=== PATIENT | male | born 1970 | race Hispanic/Latino ===

== ENCOUNTER → 2021-06-17 | Day surgery (SDC) | payer OTHER ==
[2021-06-12 12:00] VITALS: BP 127/78
--- NOTE | 2021-06-12 12:11 | PCM.EKG ---
[facility] Test Date: 2021-06-12 Test Time: 12:04:00 Pat Name: LAURA DIEGO Department: Room: Gender: M [employer]: KF [employer] PUSHER : 1970 Requested By: SILVERIO CRESPO Order Number: [id number] Reading MD: Measurements Intervals [place] Rate: 60 P: -7 WA: 158 QRS: 52 QRSD: 100 T: 64 QT: 420 QTc: 420 Interpretive Statements Normal sinus rhythm No previous ECG available for comparison Please click the below link to view image of tracing.
[2021-06-12 12:20] LABS: BASOPHIL % 0.7 % (0.0-0.2); EOSINOPHIL # 0.1 10^3/uL (0.0-0.2); EOSINOPHIL % 1.9 % (0.0-5.0); LYMPHOCYTES # 1.66 10^3/uL1 (1.0-4.8); LYMPHOCYTES % 28.8 % (24.0-44.0); MEAN CORP HGB 29.8 pg (26-34); MONOCYTES # 0.6 10^3/uL (0.3-0.8); MONOCYTES % 10.2 % (5.0-12.0); NEUTROPHIL # 3.3 10^3/uL (1.8-7.7); NEUTROPHILS % 58.1 % (41.0-85.0); PLATELET COUNT 302 10^3/uL (150-400); RED CELL DISTRIBUTION WIDTH 12.9 % (11.5-14.5)
[2021-06-12 12:37] LABS: CARBON DIOXIDE 24.5 mmol/L (20.0-32)
--- NOTE | 2021-06-12 12:50 | DIREP ---
PROCEDURE:CHEST 2 VIEWS COMPARISON:CR, CHEST 2 VIEW, 05/08/2014, 10:15 AM. INDICATIONS:PRE-OP HERNIA REPAIR FINDINGS: LUNGS/PLEURA:No focal consolidation, pleural effusion, or pneumothorax. VASCULATURE:Normal. Unremarkable pulmonary vasculature. CARDIAC:Normal. No cardiac silhouette abnormality or cardiomegaly. MEDIASTINUM:Normal. No visible mass or adenopathy. BONES:No acute osseus abnormality. OTHER:Negative. CONCLUSION: 1. No acute cardiopulmonary process. Dictated by: Gene Chow MD on 06/12/2021 at 12:48 PM
[2021-06-17] VITALS (17 sets, daily range): BP systolic 127–176; BP diastolic 83–108
[~2021-06-17] VITALS: Ht 182.9 cm; Wt 90.3 kg
[~2021-06-17] MED LIST: ANCEF ONE; ASCO500C PO; CELEBREX PO ONE; DILAUDID ONE; DIPRIVAN IV ONE; GARL100T PO; LACTATED RINGERS 1,000 ML IV SCH; LACTATED RINGERS 1,000 ML ONE; LYRICA PO ONE; NS 100ML 100 ML IV ONE; QUELICIN ONE; SENSORCAINE-MPF 0.25% VIAL ONE; SODIUM CHLORIDE IRR BAG IR ONE; SODIUM CHLORIDE IRR BOTTLE IR ONE; SUBLIMAZE ONE; ULTRAM ONE; ULTRAM PO ONE; XYLOCAINE 1%-EPI 1:100,000 ONE; ZEMURON IV ONE; ZINC50TA42 PO; [UNRECOGNIZED DRUG - CODE] PO
[2021-06-17] MEDS: DILAUDID IV PRN ×2 (09:54→10:02)
--- NOTE | 2021-06-17 10:28 | PRM.OPH ---
OPERATIVE REPORT OPERATIVE REPORT PREOPERATIVE DIAGNOSIS: Umbilical hernia Postoperative diagnosis: Umbilical hernia with incarcerated fat Indications: Patient had pain in his umbilical region after lifting and working . He has been unable to push it back in for several weeks. It continues to cause him pain. Imaging showed a small umbilical hernia.Patient underwent examination, as well as a discussion of the risk, benefits, alternatives and complications associated with the procedure. All of his questions were answered. Patient consented for surgical intervention. He and his are made aware that the risks include, but are not limited to: IA, , dysrhythmia, bleeding, infection, injury to the abdominal wall or intra- abdominal contents requiring another surgery or other procedure. The voiced understanding. We also discussed the possibility of urinary retention and requiring a Ruiz. He still consented Procedure: Laparoscopic reduction of incarcerated fat from umbilical hernia, resection of hernia sac and fat along the abdominal wall, placement of mesh to repair the umbilical hernia. Patient had a Ruiz placed prior to beginning the procedure, and it was removed prior to the patient leaving the operating room. Surgeon: Lisa Crespo MD Anesthesia: FLOR [place], general endotracheal anesthesia, local anesthesia. Specimen: None EBL: None Implants: 11 cm echo mesh with absorbable tacks Technique of procedure: After patient had been advised of the risk, benefits, alternatives and complications associated with the procedure, and given consent, as well as received 200 mg of Celebrex 100 mg of Lyrica, placed was taken to the operating room. He was placed on the operative table in the supine position. Supple mental oxygen, adequate analgesia and anesthesia were given, and the patient was intubated without incident. A Ruiz catheter was placed under sterile conditions with return of clear yellow urine prior to the balloon being inflated. The abdomen had been shaved in the preop room. It was then prepped and draped in the usual sterile fashion. A timeout was observed by all staff in the room to verify we had the appropriate patient and planned procedure. The hernia was palpated, and an estimation of how far out on the abdominal wall the mesh would extend was made, and marked with a marker. A position was chosen in the mid abdomen, approximately equal to the umbilicus, in the far lateral position on the patient's right. This area was infiltrated with local a nesthetic and an incision made with an 11 blade. The 5 mm Optiview trocar with the camera in place was carefully passed through this incision until entry was gained into the abdomen. The camera and obturator were removed, and insufflation was carried out with CO2 to achieve a pneumoperitoneum. Under direct vision, placing a scope through the 5 mm trocar, position was chosen and in the right upper abdomen, and similarly, a 5 mm trocar was placed under direct vision. The scope was then moved to the Right upper quadrant, and the position was chosen in the patient's lower abdomen on the right side. Similarly, this was injected, and a 5 mm trocharwas placed here under direct vision. There was no evidence of injury to the abdominal wall or into under abdominal contents during placement of the trochars. The area of the hernia at the umbilicus was examined, and there was a large triangular piece of fat extending towards the hernia defect. It did appear to be omental fat, and was not placing any traction on the bowel. Retraction was used, utilizing a grasper, as well as pressure externally. The Fat was slowly reduced, and removed from the defect. Similarly, a sac was grasped, and pulled into the abdomen. Utilizing Bovie cautery, the fat was resected, and moved inferiorly, where some fat along the abdominal wall was also taken down to allow the mesh to seat slightly to the fascia.Under direct vision, with the camera in the right upper quadrant trocar, I did go to the patient's left side, and in a similar manner, injected and placed a 12 mm trocar in the mid abdomen, approximately across from the umbilicus, in a lateral position. Similarly, 5 mm trocar was placed in the patient's left upper quadrant. These were done under direct vision, and there was no evidence of injury to the abdominal wall or intra-abdominal contents during placement of the trochars. A spinal needle was used, in order to measure out the size of the defect, well looking laparoscopically, and measuring externally. The defect appeared to be approximately 3 cm x 3 cm. Adding 3 cm on all sides, that would be a minimum of 9 Centimeter mesh. There was an 11 cm mesh that we had available, from [employer]. This was chosen. A marker was utilized to angie all 4 quadrants, just to verify that the mesh seated properly without being rotated or placed on traction. It was then dipped in an antibiotic solution, rolled, passed down the larger trocar.The Darrick-Juan J was used to pass through the center of the umbilicus defect, and grasped with the blue suture, which was then pulled externally. The mesh was flattened out using graspers as well as traction on the blue suture. Absorbotacs were placed in the 4 quadrants where marked, to secure the mesh, once the pressure had been dropped from 12 down to 8 mmHg.The edges of the mesh were secured first, and then the spaces filled in sequentially toward the center. When I had completed everything I could see well, I moved to the patient's left side, and tacked from that side,also. All the spaces were filled in and concentric rings with absorbable tacks. The mesh was examined , and no gaps or unsecured portions of mesh were seen. All trochars were also dry, and without evidence of bleed or injury. The ring from the mesh had been removed earlier, after the first row of tacks had been placed, and it was now removed through the 12 mm trochar without difficulty. It was inspected and verified to be intact. The larger trochar was removed, and the suture device and the Darrick-Juan J was used to pass suture and close the fascia at this point. The suture was pulled up and was airtight. All remaining trochars were then removed under direct vision. Pressure was applied to the abdomen to release pneumoperitoneum. All wounds were sutured. Interrupted 4-0 Monocryl was used to close the skin in an interrupted and buried fashion. The abdomen was cleansed. Dermabond was applied to all incisions, including the Darrick-Juan J point at the umbilicus.Gauze was folded and placed in the umbilicus once the Dermabond was dry, to help return the skin to its normal position. When patient awakened from anesthesia, the Ruiz catheter was removed. The patient tolerated the procedure well. All counts were correct at the end of the procedure. SILVERIO CRESPO MD Jun 17, 2021 10:28
== END | disposition home or self-care (01) ==
LOC: SDC 06:30
PROVIDERS: ATTEND Surgery
DX: K42.0 Umbilical hernia with obstruction, without gangrene (principal); Z87.891 Personal history of nicotine dependence; Z72.89 Other problems related to lifestyle; Z79.899 Other long term (current) drug therapy; Z98.890 Other specified postprocedural states
CPT/HCPCS: 36415; 49653; 71046; 80048; 85025; 93005; A4217; A4649; C1781; J0330; J0690; J1170 ×2; J3010; J3490 ×3; J7120